=== PATIENT | female | born 1975 | race Hispanic/Latino ===

== ENCOUNTER 2022-06-28 18:37 | Emergency (ER) | payer OTHER ==
[~2022-06-28] VITALS: Ht 160 cm; Wt 76.2 kg
[2022-06-28] MEDS ORDERED: CORTISPORIN-TC10 M1 EACH EAR (19:14)
== END 2022-06-28 19:35 | disposition home or self-care (01) ==
LOC: ER 18:40
DX: H60.93 Unspecified otitis externa, bilateral (principal); R50.9 Fever, unspecified
CPT/HCPCS: 99282